=== PATIENT | female | born 1965 | race Caucasian/White ===

== ENCOUNTER 2016-06-19 08:09 | Emergency (ER) | payer BC ==
--- NOTE | 2016-06-19 08:56 | UC ---
General HPI - HPI Summary HPI Summary: The patient comes in today for: 1. "Feeling like I was going to faint," "Head is stuffed," "body aches," "neck pain," "Headache.": Onset: 3 days. Palliative/provocative: Nothing makes her symptoms better or worse. Quality: Ache. Region: Body, neck and head. Severity: 07/20 Time: Constant. Associated symptoms: "I was jittery at work." Rhinitis: Present, yellowish mucous. Cough: Present--productive of "little bit." which was not inspected. Chest pain: Present, dull, steady, retrosternal. Diaphoresis present only yesterday. Chest pain only present today. There is no radiation. Activity does not affect the chest pain, but she states she has not been active. Nausea : None. CAD risk factors: HTN: (-). DM: (-). Fm Hx: (-). Cholesterol: (?). Previous disease: (-). Smoker: (+). Dyspnea: Present. 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 She has been referred to a neurosurgeon, but has not seen this person yet. * - History of Current Complaint Chief Complaint: UCRespiratory Stated Complaint: SHAKY,SORE THROAT,RIGHT EAR PAIN Time Seen by Provider: 06/19/16 08:47 Hx Obtained From: Patient - Allergy/Home Medications Allergies/Adverse Reactions: Allergies Allergy/AdvReac Type Severity Reaction Status Date / Time change of weather Allergy Sneezing Uncoded 06/19/16 08:41 Home Medications: Home Medications Aspirin [Poonam Childrens Aspirin] 81 mg PO DAILY 06/19/16 [History Confirmed 01/26] Dextromethorphan-Guaifenesin [Mucinex Dm Maximum Streng 60-1200 mg] 2 tab PO ONCE PRN 06/19/16 [History Confirmed 06/19/16] PMH/Surg Hx/FS Hx/Imm Hx Previously Healthy: No - "Mass on lungs caused by chemo" Non Hodgkins Lymphoma stage 4 Rx 03/25. Endocrine History Of: Denies: Diabetes, Thyroid Disease, Hyperthyroidism, Hypothyroidism, Dyslipidemia Cardiovascular History Of: Denies: Cardiac Disorders, Hypertension, Pacemaker/ICD, Myocardial Infarction , Congestive Heart Failure, Atrial Fibrillation, Deep Vein Thrombosis, Bleeding Disorders Respiratory History Of: Reports: COPD, Asthma Denies: Bronchitis, Pneumonia, Pulmonary Embolism GI/ History Of: Denies: Gastroesophageal Reflux, Ulcer, Gastrointestinal Bleed, Gall Bladder Disease, Kidney Stones, Diverticulitis, Renal Disease, Urosepsis Neurological History Of: Denies: TIA, CVA, Dementia, Seizures, Migraine Psychological History Of: Denies: Anxiety, Depression, Bipolar Disorder, Schizophrenia, Post Traumatic Stress Disorder Cancer History Of: Denies: Lung Cancer, Colorectal Cancer, Breast Cancer, Prostate Cancer, Cervical Cancer Other History Of: Anticoagulant Therapy - One children's aspirin daily. Negative For: HIV, Hepatitis B, Hepatitis C - Surgical History Surgical History: Yes Surgery Procedure, Year, and Place: Tubal ligation, uterine cysts, fatty tumor on back - Family History Known Family History: Positive: Hypertension Negative: Cardiac Disease, Diabetes - Social History Occupation: Employed Full-time Alcohol Use: Rare Substance Use Type: None Smoking Status (MU): Heavy Every Day Tobacco Smoker - Immunization History Most Recent Influenza Vaccination: Not this season Review of Systems Constitutional: Negative Skin: Negative Eyes: Negative ENT: Nasal Discharge Respiratory: Cough Cardiovascular: Chest Pain Gastrointestinal: Negative Genitourinary: Negative All Other Systems Reviewed And Are Negative: Yes Physical Exam Triage Information Reviewed: Yes Appearance: Well-Appearing, No Pain Distress, Well-Nourished Vital Signs: Initial Vital Signs Temp 99.2 F 06/19/16 08:33 Pulse 82 06/19/16 08:33 Resp 20 06/19/16 08:33 BP 130/72 06/19/16 08:33 Pulse Ox 99 06/19/16 08:33 Vital Signs Reviewed: Yes Eyes: Positive: Conjunctiva Clear. Negative: Discharge ENT: Positive: Hearing grossly normal. Negative: Pharyngeal erythema, Nasal congestion, Nasal drainage, TM bulging, TM dull, TM red, Tonsillar swelling, Tonsillar exudate Dental: Negative: Gross Decay/Caries @, Dental Fracture @ Neck: Positive: Supple, Nontender, No Lymphadenopathy. Negative: Nuchal Rigidity Respiratory: Positive: Lungs clear, No respiratory distress, No accessory muscle use. Negative: Crackles, Wheezing Cardiovascular: Positive: RRR, No Murmur Abdomen Description: Positive: Nontender, No Organomegaly, Soft. Negative: Distended, Guarding Musculoskeletal: Positive: Strength Intact, ROM Intact, No Edema, Other: - Tenderness present of the upper neck. Neurological: Positive: Alert, Muscle Tone Normal Psychological: Positive: Age Appropriate Behavior, Consolable Skin: Negative: rashes, breakdown Course/Dx - Course Course Of Treatment: Patient was told of my concern of her history of cancer, complaint of feeling like she was going to faint, dyspnea and chest pain. She was told that I recommend that she go to the [facility] ER to which she agreed. - Differential Dx - Multi-Symptom Provider Diagnoses: Chest pain, dypsnea, near-syncope (positive history of non- Hodgkins lymphoma). - Physician Notifications Discussed Patient Care With: Chitra Tracey told of this patient at the [facility] ER at 9:16 AM. Discharge - Discharge Plan Condition: Stable Disposition: AGAINST MEDICAL ADVICE Forms: *Work Release Referrals: Abbey Brewer PA [Primary Care Provider] - Additional Instructions: [facility] go directly [facility].
[2016-06-19 09:21] VITALS: BP 131/83
== END 2016-06-19 09:20 | disposition left against medical advice (07) ==
LOC: UCCORT 08:09
DX: R07.9 Chest pain, unspecified (principal); R06.00 Dyspnea, unspecified; F17.210 Nicotine dependence, cigarettes, uncomplicated; Z85.71 Personal history of Hodgkin lymphoma; Z92.21 Personal history of antineoplastic chemotherapy
CPT/HCPCS: 99213; G0463

== ENCOUNTER 2018-01-07 13:12 | Emergency (ER) | payer BC, OTHER ==
[2018-01-07 14:32] VITALS: BP 145/89
[2018-01-07] MEDS ORDERED: Acetaminophen TAB* 325 MG PO ONE (14:36)
--- NOTE | 2018-01-07 15:04 | UC ---
General HPI - HPI Summary HPI Summary: Pt with sore throat, headache, chest congestion x 3 days. x 24 hours productive cough with green sputum, wheeze, fatigue and post tussive emesis x 1. Chills. + sick contact. No relief with OTC cough and cold meds. + 1ppd tobacco Pt's medications reviewed this visit - History of Current Complaint Chief Complaint: UCRespiratory Stated Complaint: SORE THROAT, UPPER RESPIRATORY, VOMITING Time Seen by Provider: 01/07/18 14:11 Hx Obtained From: Patient Hx Last Menstrual Period: 3yrs Onset/Duration: Gradual Onset Pain Intensity: 7 - Allergy/Home Medications Allergies/Adverse Reactions: Allergies Allergy/AdvReac Type Severity Reaction Status Date / Time change of weather Allergy Sneezing Uncoded 01/07/18 14:20 Home Medications: Home Medications Chlorphen/Phenyleph/Dm/Aspirin [Faith-Corn Plus Cold &] 1 tab PO PRN 01/07/18 [History] Dextromethorphan Hb/Doxylamine [Gnp Night Time Cough] 1 liq PO PRN 01/07/18 [ History] PMH/Surg Hx/FS Hx/Imm Hx Previously Healthy: Yes Other History Of: Anticoagulant Therapy - One children's aspirin daily. Negative For: HIV, Hepatitis B, Hepatitis C - Surgical History Surgical History: Yes Surgery Procedure, Year, and Place: Tubal ligation, uterine cysts, fatty tumor on back - Family History Known Family History: Positive: Hypertension Negative: Cardiac Disease, Diabetes - Social History Occupation: Employed Full-time Lives: With Family Alcohol Use: Rare Substance Use Type: None Smoking Status (MU): Heavy Every Day Tobacco Smoker Amount Used/How Often: 1/2 PPD - Immunization History Most Recent Influenza Vaccination: Not this season Review of Systems Constitutional: Fever, Chills, Fatigue ENT: Sore Throat Respiratory: Shortness Of Breath, Cough Musculoskeletal: Myalgia All Other Systems Reviewed And Are Negative: Yes Physical Exam - Summary Physical Exam Summary: Vital Signs Reviewed: Yes A+Ox3, tired appearing, chills, requested blanket, warm to touch Eyes: Conjunctiva Clear, FLAKITO. EOM intact and full ENT: Hearing grossly normal TM x 2 clear, turbinates inflammed and boggy, + PND , mmoist, uvula midline, no exudate, no erythema Neck: Positive: Supple Respiratory: Positive: No respiratory distress, coarse cough and scattered wheeze, No accessory muscle use Cardiovascular: RRR nl s1, s2 no m/r CBT <2 sec abd soft + BS nt/nd no guarding, no distension Musculoskeletal Exam: JAMESON x 4 without difficulty Strength Intact, ROM Intact Neurological: Positive: Alert, + sensation throughout Psychological: Positive: Normal Response To Family Skin: Positive: no rash, no ecchymosis Triage Information Reviewed: Yes Vital Signs: Initial Vital Signs Temp 99.9 F 01/07/18 14:24 Pulse 88 01/07/18 14:24 Resp 20 01/07/18 14:24 BP 145/89 01/07/18 14:24 Pulse Ox 99 01/07/18 14:24 Course/Dx - Course Course Of Treatment: Pt with progressive body aches, cough, sputum, congestion, tactile temp and chills. Pt appears uncomfortable, scattered wheeze. fluid and strep neg. hydrate. abx. mdi. secretion precaution. return precaution. BP mildly elevated - recommend pcp f/u - Differential Dx - Multi-Symptom Provider Diagnoses: acute bronchitis Discharge - Sign-Out/Discharge Documenting (check all that apply): Patient Departure All imaging exams completed and their final reports reviewed: No Studies - Discharge Plan Condition: Stable Disposition: HOME Prescriptions: Azithromycin TAB* [Zithromax TAB (Z-JOHN) 250 mg #6 tabs] 2 tab PO .TODAY, THEN 1 DAILY #1 john Patient Education Materials: Acute Bronchitis (ED) Forms: *Work Release Referrals: Abbey Brewer PA [Primary Care Provider] - Additional Instructions: - Stay well hydrated. Drink plenty of non-alcoholic, non-caffinated beverages. - Alternate ibuprofen (Advil, Motrin) 600mg and Tylenol every 3 hours for pain or fever. Take with food. Do NOT take for more than 4-5 days. - These infections are spread by secretions - do NOT share eating or drinking utensils - clean items you share with other people such as cell phones, computer mouse, TV remote, computer tablets,etc. Once you have been antibiotics for 2 days, change your toothbrush and your pillowcase. - get plenty of restful sleep - humidify the air in the room where you sleep - boil water, run a hot steam shower, vaporizer, cups of water by heat register - okay to take over the counter decongestant and cough medication - work to decrease cigarette smoking - contact your doctor or return with questions or concerns - Billing Disposition and Condition Condition: STABLE Disposition: Home
== END 2018-01-07 15:08 | disposition home or self-care (01) ==
LOC: UCCORT 13:12
DX: J20.9 Acute bronchitis, unspecified (principal); Z79.82 Long term (current) use of aspirin; F17.200 Nicotine dependence, unspecified, uncomplicated
CPT/HCPCS: 87651; 99212; A9270-GY; G0463